=== PATIENT | female | born 1965 | race Caucasian/White ===

== ENCOUNTER 2017-11-09 11:16 | Inpatient (IN) ==
--- NOTE | 2017-11-08 22:16 | Discharge Summary ---
<Mila Vo E - Last Filed: 11/08/17 22:14> Date of Encounter: 11/08/17 - Discharge Diagnosis (1) Osteoarthritis of left shoulder Priority: Primary Status: Chronic Qualifiers: Osteoarthritis type: unspecified Qualified Code(s): M19.012 - Primary osteoarthritis, left shoulder (2) Anxiety Priority: Secondary Status: Chronic (3) Meralgia paraesthetica Priority: Secondary Status: Chronic (4) Obesity Priority: Secondary Status: Chronic Qualifiers: Obesity type: unspecified obesity type Obesity classification: unspecified obesity classification Serious obesity comorbidity presence: unspecified whether serious comorbidity present Qualified Code(s): E66.9 - Obesity, unspecified - Hospital Course Hospital course: Ms. Sterling Lozada is a 52 year old female - Time Spent with Patient Total time spent providing and/or coordinating discharge services: - Discharge Medications Home Medications: OxyCODONE Immed Rel [Roxicodone 5 MG] 5 mg PO Q6HR PRN 7 Days #28 tablet [Rx] Amitriptyline HCl 100 mg PO HS 11/09/17 [History] Aspirin [Lo-Dose Aspirin EC] 81 mg PO DAILY 11/09/17 [History] Atorvastatin Calcium [Lipitor] 20 mg PO HS 11/09/17 [History] Escitalopram [Lexapro] 20 mg PO DAILY 11/09/17 [History] Lisinopril [Zestril] 5 mg PO DAILY 11/09/17 [History] Quetiapine Fumarate [Seroquel] 50 mg PO HS 11/09/17 [History] Rabeprazole Sodium [Aciphex] 20 mg PO DAILY PRN 11/09/17 [History] clonazePAM [Klonopin] 0.5 mg PO BID PRN 11/09/17 [History] hydrOXYzine pamoate [Hydroxyzine Pamoate] 25 mg PO HS PRN 11/09/17 [History] hydroCHLOROthiazide [Hydrochlorothiazide] 25 mg PO DAILY 11/09/17 [History] lamoTRIgine [Lamictal] 50 mg PO DAILY 11/09/17 [History] Allergies/Adverse Reactions: 3 Allergy/AdvReac Type Severity Reaction Status Date / Time sumatriptan [From Imitrex] Allergy See Verified 11/09/17 12:47 Comments meperidine [From Demerol] AdvReac Agitated Verified 11/09/17 12:47 prednisone AdvReac See Verified 11/09/17 12:47 Comments Primary care physician: Yennifer Souza CNP - Patient Status Disposition: Home, Self-Care Condition: Good - Discharge Instructions Follow Up With: Yennifer Souza CNP [Primary Care Provider] - <SerafinRian - Last Filed: 11/10/17 06:43> Orders not resulted at time of discharge: Pending orders 11/09/17 00:00 XR shoulder complete LT [XR] Routine 11/09/17 01:00 Hemoglobin and Hematocrit [HEME] Routine Date of Encounter: 11/10/17 Time of Encounter: 06:43 - Discharge Diagnosis (1) Morbid obesity with BMI of 50.0-59.9, adult Priority: Secondary Status: Chronic (2) Osteoarthritis of left shoulder Priority: Primary Status: Chronic Qualifiers: Osteoarthritis type: unspecified Qualified Code(s): M19.012 - Primary osteoarthritis, left shoulder (3) Anxiety Priority: Secondary Status: Chronic (4) Meralgia paraesthetica Priority: Secondary Status: Chronic Qualifiers: Laterality: unspecified laterality Qualified Code(s): G57.10 - Meralgia paresthetica, unspecified lower limb (5) Status post total replacement of left shoulder Priority: Primary Status: Acute (6) Bipolar disorder Priority: Secondary Status: Chronic Qualifiers: Active/Remission status: remission status unspecified Qualified Code(s): F31.9 - Bipolar disorder, unspecified - Hospital Course Hospital course: Ms. Sterling Lozada is a 52 year old female Status post right total shoulder replacement. The patient had an uneventful postoperative course. They received antibiotics and physical therapy and were discharged in stable condition. There will follow -up in the office in 2 weeks. - Time Spent with Patient Total time spent providing and/or coordinating discharge services: Primary care physician: Yennifer Souza CNP - Patient Status Functional capacity at discharge: independent ambulation Overall status at discharge: patient is progressing back to baseline
--- NOTE | 2017-11-09 08:39 | Physician Discharge Referral ---
Home Health/Hosp Referral Info Transfer to: Home Health Attending Provider: Dr Betancourt - Diagnosis (1) Osteoarthritis of left shoulder Priority: Primary Status: Chronic (2) Anxiety Priority: Secondary Status: Chronic (3) Meralgia paraesthetica Priority: Secondary Status: Chronic (4) Obesity Priority: Secondary Status: Chronic (5) Status post total replacement of left shoulder Priority: Primary Status: Acute - Respiratory Orders Smoking Cessation: Smoking cessation has been advised. For more information, call the [facility] Tobacco Quit Line at 8-350-VPQQ-NOW. - Dressing/Wound Care Site: left shoulder Type of Dressing/Treatments w/Frequency: Opsite placed. Keep dressing intact until first follow up appointment. If > 50% saturated, notify office, remove dressing and place appropriate dressing back in place. Leave Zipline intact. Opsite dressing is water resistant, not water- proof. OK to shower, but do not get dressing wet. - Diet/Nutrition Diet/Nutrition Orders: Regular - Activity Activity Orders: Up ad jeanmarie, Ambulate, Chair, Walker - Services Needed Following services are medically necessary services: Nursing, Home Health Aide, Physical Therapy, Occupational Therapy Home Care Orders: PT/OT. NWB to affected upper extremity. Follow Shoulder Precautions x 6 weeks. Stay in brace during activity and at night. Remove brace during exercises. ICE and elevate extremity frequently throughout the day. - Transfer Medications Prescriptions: OxyCODONE Immed Rel [Roxicodone 5 MG] 5 mg PO Q6HR PRN 7 Days #28 tablet PRN Reason: Severe Pain Home Medications: OxyCODONE Immed Rel [Roxicodone 5 MG] 5 mg PO Q6HR PRN 7 Days #28 tablet [Rx] Certification: Further, I certify that my clinical findings support that this patient is homebound (i.e. absences from home require considerable and taxing effort and are for medical reasons or jain services or infrequently or short duration when for other reasons) because: Homebound Reason: Post-surgery restriction and or conditions limit ability to leave home Attestation: My signature below is to certify that this patient is under my care and that I, or nurse practitioner, or a physician assistant technician working with me, has a face-to- face encounter with this patient.
[2017-11-09] MEDS ORDERED: CeFAZolin Syr 3,000MG/30 ML 3,000 MG/30 ML SYRINGE IVPB ONE (11:38)
[2017-11-09] MEDS ORDERED: Ringers Solution, Lactated 1,000 ML IVC SCH ×2 (11:45→17:16)
[2017-11-09] MEDS ORDERED: Acetaminophen IV 1,000 MG/100 ML INFUS..BTL IVPB ONE (11:54)
--- NOTE | 2017-11-09 11:56 | Anesthesia Evaluation PreOp ---
Date of Encounter: 11/09/17 Time of Encounter: 11:54 - Past History Planned Operation: L total shoulder replacement Cardiac History: Denies any Significant Hx, Other (Impressions: Sinus tachycardia. LVEF 60-65%. Normal LV chamber size, wall thickness and function. Mild left ventricular diastolic dysfunction. Grossly, normal right ventricular structure and function. Unable to accurately estimate RVSP due to inadequate TR jet. No significant valvular dysfunction) Pulmonary History: Denies Any Significant HX PLAQUE MAKER History: Other (anxiety, bipolar depression) Other Medical History: Other (BMI 51) Anesthesia History: No Prior Anesthetic Complications, Past Anesthesia (R arm, L wrist tendon, ovarian cyst, AMOL, zachariah knee, breast reduction) Alcohol Use: none Drug use: none Medications and Allergies OxyCODONE Immed Rel [Roxicodone 5 MG] 5 mg PO Q6HR PRN 7 Days #28 tablet [Rx] 3 Allergy/AdvReac Type Severity Reaction Status Date / Time sumatriptan [From Imitrex] Allergy See Verified 11/09/17 11:37 Comments meperidine [From Demerol] AdvReac See Verified 11/09/17 11:36 Comments prednisone AdvReac See Verified 11/09/17 11:38 Comments - Meds/Allergy Pre-op Review Medications Reviewed: Yes Allergies Reviewed: Yes Beta Blockers on Current Med List: No Anesthesia Results - Labs Laboratory Tests 04/13/17 11/05/17 11/05/17 15:48 16:46 16:46 WBC 6.8 Hgb 13.4 Hct 40.1 Plt Count 252 Sodium 135 L Potassium Chloride 96 L Carbon Dioxide 26 BUN 10 Creatinine 0.90 Est Mean Plasma Glucose 120 Hemoglobin A1c 5.8 H 11/06/17 16:54 WBC Hgb Hct Plt Count Sodium Potassium 3.2 L Chloride Carbon Dioxide BUN Creatinine Est Mean Plasma Glucose Hemoglobin A1c - Imaging EKG: report reviewed (SR) Anesthesia Exam O2 Sat Height 1.63 m Height 1.63 m Weight 136.078 kg Weight 136.078 kg O2 Sat by Pulse Oximetry 98 Vital Signs Temp Pulse Resp BP Pulse Ox 98.2 F 102 18 138/69 98 11/09/17 11:35 11/09/17 11:35 11/09/17 11:35 11/09/17 11:35 11/09/17 11:35 Height: 64" Weight: 300lbs NPO (# of Hours): >8 - HEENT Pupil (Motor): Pupils equal, EOMI Mallampati: III Teeth: Normal Oral Opening: Greater than 3 - PLAQUE MAKER LOC: Oriented PLAQUE MAKER Motor: Normal RUE, Normal LUE, Normal RLE, Normal LLE, Normal Face PLAQUE MAKER Sensory: Normal: RUE, LUE, RLE, LLE, Face - Cardiac Rhythm: Regular - Pulmonary Breath Sounds: bilateral Clear Respiratory Effort: Symmetrical Anesthesia Assess/Plan ASA Score: 3 Modified Canvas Scale for Level of Consciousness: Cooperative, oriented, and tranquil Anesthetic Plan: General, Regional (L brachial plexus nn block) Monitoring Plan: Standard Monitors Recovery Plan: PACU
--- NOTE | 2017-11-09 12:16 | History & Physical Report ---
Date of Encounter: 11/09/17 Time of Encounter: 12:16 24 Hour HP Update - Instructions Instructions: If the History and Physical is less than 30 days old and was completed prior to A.M. admission and or procedure and has NOT been updated on calendar day of procedure please complete this update prior to performing procedure. - Update Patient reports changes in Medical Condition: No Changes in examination, assessment, or condition: No Changes in Medication: No Preop tests/diagnostics Reviewed: Yes Surgery Remains Indicated: Yes Consent for Planned Operative Procedure(s) Verified: Yes - Pre-Operative Checklist Preoperative Checklist Indicated: No Prophylactic Antibiotic Ordered: Yes Is VTE Prophylaxis Indicated?: Yes
[2017-11-09] MEDS ORDERED: *HR* FentaNYL (PF) 100 MCG/2 ML VIAL ONE (12:48)
[2017-11-09] MEDS ORDERED: *HR* Propofol 200 MG/20 ML VIAL IVP ONE (12:49)
[2017-11-09] MEDS ORDERED: *HR* Midazolam HCl 2 MG/2 ML VIAL ONE (12:49)
[2017-11-09] MEDS ORDERED: ROPIVACAINE HCL/PF 0.5% 30 ML VIAL ONE (13:24)
[2017-11-09] MEDS ORDERED: *HR* Succinylcholine 200 MG/10 ML VIAL IVP ONE (13:41)
--- NOTE | 2017-11-09 13:53 | Anesthesia Procedures ---
Date of Encounter: 11/09/17 Time of Encounter: 13:51 Procedures: Anesthesia - Nerve Block Procedure Date: 11/09/17 Time: 13:51 Surgical Procedure: left total shoulder replacement Checklist: Correct Patient Identifier, Correct procedure, History checked Correct side: Left Blood Thinner: No Monitor Applied: EKG, BP, Pulse Oximetry Supplemental Oxygen via Nasal Cannula (L/min): 2 Sedation: Versed (mg): 2 Sedation: Fentanyl (mcg): 100 Indication: Post Op Analgesia (request per dr simon for post op pain control) Pre-op Neuro Deficits: No Block Type: Supraclavicular Catheter placed: No Sterile Technique: Yes Ultrasound used: Yes Anatomy identified: Yes Visual spread of Local: Yes Neuro Stimulation: No Blood on Needle Aspiration: No Smooth Injection of Local: Yes Pain with Injection of Local: No Prep: Chlorhexadine Needle: 22 x 50 mm Stimuplex Local: Ropivacaine Volume (cc): 30 Number of Attempts: 1 Complications: None/effective block Vitals: Vital Signs/O2 Sat/Glucose, Most Current Temp Pulse Resp BP Pulse Ox 11/09/17 13:48 105 125/70 96 11/09/17 11:35 98.2 F 102 18 138/69 98 Comments: pt tolerated procedure well. no complications. vss.
[2017-11-09] MEDS ORDERED: *HR* OxyCODONE Immed Rel 5 MG TABLET PO PRN ×3 (14:42→17:16)
[2017-11-09] MEDS ORDERED: *HR* FentaNYL (PF) 100 MCG/2 ML VIAL IVP PRN (14:42)
[2017-11-09] MEDS ORDERED: Ondansetron 4 MG/2 ML VIAL IVP PRN ×2 (14:42→17:16)
--- NOTE | 2017-11-09 15:16 | Orthopedic Operative Note ---
Date of procedure: 11/09/17 Pre-op diagnosis: Left shoulder arthritis Post-op diagnosis: same Procedure: Procedure: Left Total Shoulder Replacement biceps tenodesis Estimated blood loss: 100 cc Hardware:Arthrex glenoid: Medium humeral stem: 9 humeral head 48 x 19 Exam Under anesthesia:restricted all planes Procedural Notes: Grade 4 arthritic changes humeral head glenoid socket. Operative procedure: The patient was brought to the operating room and placed on the operating room table. After general anesthesia was administered the operative shoulder was examined. Findings were noted. The patient was placed in the modified beachchair position. All pressure points were padded appropriately. And the head was stabilized in the neutral position. The operative extremity was prepped and draped in the sterile surgical fashion. The patient received IV antibiotics prior to skin incision. A standard deltopectoral approach was made to the operative shoulder. Incision was made to the skin and subcutaneous tissue,hemo stasis was obtained with Bovie cautery. Using careful blunt dissection the cephalic vein was identified and mobilized medially. The deltopectoral interval was developed and the clavipectoral fascia was incised. The subscap was released off the lesser tuberosity and tagged with #2 FiberWire suture. The humerus was dislocated osteophytes were present were removed and the humeral cut was made along the anatomic neck. Patient with grade 4 arthritic changes humeral head. Anterior and posterior Bankart retractors were placed to expose the glenoid. The glenoid guide was seated and the centering hole was made. It was reamed with the appropriate reamer. The finishing guide was seated superior and inferior drill holes were placed. Patient punch was seated trial was seated had good fit and fixation. The glenoid component was cemented in place held with digital pressure until cemented hardened. A good fit and fixation. The humerus was redislocated and prepared with the diaphyseal reamers, followed by a broaching process up to the appropriate size 9 in the patient's anatomic version. Trial components were removed and drill holes were placed in the bicipital groove x 2. The apex stem was filled with a #5 FiberWire suture through the holes in the stem the 2 lateral fin holes were passed through the drill holes in the lesser tuberosity and passed through the biceps tendon. The component was impacted in place the neck angle and version were locked in place with the inferior and superior screws the 48 x 19 trial head was seated and secured in the appropriate position shoulder had good motion and stability. Trial head was removed we will component was seated and secured subscap was repaired to the humerus as well as the humeral stem incorporating the biceps tendon for biceps tenodesis and a subscap repair. The PA close the shoulder. The deltopectoral interval was closed with a running #1 PDS suture, subcutaneous tissue was irrigated and closed with 0 PDS suture, the skin was closed with Dermabond. The patient was placed in a sterile dressing, abduction brace and extubated. The patient was then transferred to the recovery room in stable condition. Anesthesia: GETJesse Surgeon: Rian Betancourt Was there an assistant professor of psychology present: Yes Hardener Helper: Emilia Escoto Estimated blood loss (cc): 100 Condition: stable Disposition: PACU
[2017-11-09 16:27] LABS: Hematocrit 35.5 % (35.3-44.9)
[2017-11-09 16:28] LABS: Hemoglobin 11.5 g/dL (11.5-15.4)
--- NOTE | 2017-11-09 16:55 | Anesthesia Evaluation Post Op ---
Date of Encounter: 11/09/17 Time of Encounter: 16:53 - Vital Signs Vital Signs: Last Vital Signs Temp 98.7 F 11/09/17 16:39 Pulse 91 11/09/17 16:39 Resp 16 11/09/17 16:39 BP 142/82 11/09/17 16:39 Pulse Ox 91 11/09/17 16:39 - Lungs Lungs: Clear Ascult./Percussion - Airway Airway: Non-obstructed - Cardiovascular Regular Rate - Mental Status Mental Status: Alert & Oriented, Answers Appropriately - Pain Pain Scale: 1 - Nausea Vomiting Nausea Vomiting: Not Present - Hydration Hydration: Ice chips - Discharge PostOp Status: Transfer Patient to floor
[2017-11-09] MEDS ORDERED: hydrOXYzine pamoate 25 MG CAPSULE PO PRN (17:16)
[2017-11-09] MEDS ORDERED: MOM Conc 10 ML UD.LIQ PO PRN (17:16)
[2017-11-09] MEDS ORDERED: RABEPRAZOLE SODIUM 20 MG PO PRN (17:16)
[2017-11-09] MEDS ORDERED: clonazePAM 0.5 MG TABLET PO PRN (17:16)
[2017-11-09] MEDS ORDERED: Temazepam 15 MG CAPSULE PO PRN (17:16)
[2017-11-09] MEDS ORDERED: Sennosides 8.6 MG TABLET PO PRN (17:16)
[2017-11-09] MEDS ORDERED: Naloxone 0.4 MG/ML INJ IVP PRN (17:16)
[2017-11-09] MEDS ORDERED: *HR* Enoxaparin 30 MG/0.3 ML SYRINGE SQ SCH (18:00)
[2017-11-09] MEDS: *HR* Enoxaparin 30 MG/0.3 ML SYRINGE SQ SCH (18:11)
[2017-11-09] MEDS: CeFAZolin Syr 3,000MG/30 ML 3,000 MG/30 ML SYRINGE IVPB SCH (21:24)
[2017-11-10 04:46] VITALS: BP 113/68
[2017-11-10] MEDS: *HR* Enoxaparin 30 MG/0.3 ML SYRINGE SQ SCH (06:03)
[2017-11-10] MEDS: CeFAZolin Syr 3,000MG/30 ML 3,000 MG/30 ML SYRINGE IVPB SCH (06:03)
[2017-11-10 06:18] LABS: Hemoglobin 11.2 g/dL (11.5-15.4)
--- NOTE | 2017-11-10 06:44 | Orthopedics Progress Note ---
Date of Encounter: 11/10/17 Time of Encounter: 06:44 - Assessment and Plan (1) Morbid obesity with BMI of 50.0-59.9, adult Current Visit: Yes Status: Chronic (2) Osteoarthritis of left shoulder Current Visit: No Status: Chronic Qualifiers: Osteoarthritis type: unspecified Qualified Code(s): M19.012 - Primary osteoarthritis, left shoulder (3) Anxiety Current Visit: No Status: Chronic (4) Meralgia paraesthetica Current Visit: No Status: Chronic Qualifiers: Laterality: unspecified laterality Qualified Code(s): G57.10 - Meralgia paresthetica, unspecified lower limb (5) Status post total replacement of left shoulder Current Visit: No Status: Acute (6) Bipolar disorder Current Visit: Yes Status: Chronic Qualifiers: Active/Remission status: remission status unspecified Qualified Code(s): F31.9 - Bipolar disorder, unspecified Subjective Interval history: Patient was seen this morning doing well without complaints. Afebrile vital signs stable. Operative extremity: Neurovascularly intact Dressing clean dry and intact Calves nontender Assessment and plan: Continue with postoperative care Hematocrit 33 discharged today Objective Vital signs: Vital Signs Temp Pulse Resp BP Pulse Ox 11/10/17 04:45 97.9 F 85 18 113/68 96 11/10/17 00:58 98.4 F 91 18 118/75 98 11/09/17 19:20 98.8 F 102 16 133/85 93 11/09/17 18:52 98 16 112/65 97 11/09/17 18:07 98.2 F 94 16 99/59 95 11/09/17 17:20 98.4 F 90 16 145/85 95 11/09/17 16:59 87 16 142/89 91 11/09/17 16:49 88 16 138/83 93 11/09/17 16:39 98.7 F 91 16 142/82 91 11/09/17 16:29 94 16 135/82 90 11/09/17 16:19 90 16 131/80 90 11/09/17 16:09 97.0 F L 97 16 133/84 89 11/09/17 15:59 101 14 128/84 91 11/09/17 15:49 99 16 129/86 91 11/09/17 15:39 97.0 F L 94 12 122/71 93 11/09/17 13:48 105 125/70 96 11/09/17 11:35 98.2 F 102 18 138/69 98 Intake and Output 11/09/17 11/09/17 11/10/17 15:59 23:59 07:59 Intake Total 30 / 30 500 / 500 Output Total 100 / 100 Balance -100 / -100 30 / 30 500 / 500 Intake: IV Fluids 30 / 30 Ancef Syringe 3,000 MG/30 ML 3, 30 / 30 000 mg In 30 ml @ 200 mls/hr IVPB Q8H BARBRA Rx#:[id number] Oral 0 / 0 500 / 500 Output: Estimated Blood Loss 100 / 100 Other: # Voids 1 1 Weight 136.078 kg - Labs CBC & BMP: 11/10/17 05:53 Labs: Abnormal lab results Hgb 11.2 g/dL (11.5-15.4) L 11/10/17 05:53 Hct 33.0 % (35.3-44.9) L 11/10/17 05:53 - VTE Documentation of Mechanical Device: Venous foot pump, device Consult Discharge Plan - Plan Referrals: Yennifer Souza, PROCESS OWNER [Primary Care Provider] -
[2017-11-10] MEDS ORDERED: Aspirin Enteric Coated 81 MG Tablet PO SCH (09:00)
[2017-11-10] MEDS ORDERED: lamoTRIgine 25 MG TABLET PO SCH (09:00)
[2017-11-10] MEDS ORDERED: hydroCHLOROthiazide 25 MG TABLET PO SCH (09:00)
== END 2017-11-10 11:45 | disposition home or self-care (01) | DRG 483 ==
LOC: SAMDAY 11:16 → 3NENU 17:13
PROVIDERS: ADMIT Orthopaedic Surgery; ATTEND Orthopaedic Surgery

== ENCOUNTER 2020-10-09 11:38 | Observation (INO) ==
[2020-10-09 10:34] LABS: Basophils % 0.6 %; Eosinophils # 0.3 K/mcL (0.0-0.6); Eosinophils % 5.1 %; Hemoglobin 12.1 g/dL (11.5-15.4); Immature Granulocytes % 0.3 % (0-4); Lymphocytes # 1.9 K/mcL (0.6-4.6); Lymphocytes % 28.9 %; Mean Corpuscular Hemoglobin 30.2 pg (28.0-33.3); Mean Corpuscular Volume 97.3 fL (83.0-100.0); Mean Platelet Volume 9.4 fL (9.4-12.4); Monocytes # 0.6 K/mcL (0.0-1.3); Monocytes % 9.5 %; Neutrophils # 3.6 K/mcL (1.6-8.9); Platelet Count 242 K/mcL (140-400); Red Blood Count 4.01 M/mcL (3.82-4.97); Red Cell Distribution Width 13.4 % (11.5-14.5); Segmented Neutrophils % 55.6 %; White Blood Count 6.5 K/mcL (4.3-11.1)
[2020-10-09 10:53] LABS: Alanine Aminotransferase 20 Units/L (7-52); Albumin 4.4 g/dL (3.5-5.7); Albumin/Globulin Ratio 1.6 (1.1-2.2); Alkaline Phosphatase 84 Units/L (34-104); Aspartate Amino Transferase 14 Units/L (13-39); BUN/Creatinine Ratio 30 (6-26); Bilirubin,Total 0.3 mg/dL (0.3-1.0); Blood Urea Nitrogen 24 mg/dL (6-20); Calcium 10.2 mg/dL (8.6-10.3); Carbon Dioxide 31 mEq/L (23-29); Chloride 104 mEq/L (98-107); Globulin 2.8 g/dL (2.4-3.5); Glucose 119 mg/dL (70-105); Magnesium 1.7 mg/dL (1.6-2.6); Osmolality,Calculated 295 (280-300); Potassium 4.5 mEq/L (3.5-5.1); Sodium 140 mEq/L (136-145); Total Protein 7.2 g/dL (6.4-8.9); eGFR For African Americans > 60 (> 60); eGFR For Non-African Americans > 60 (> 60)
[2020-10-09] MEDS: Nicotine 21 MG PATCH.TD24 TD SCH (11:16)
[2020-10-09] MEDS: Cholecalciferol (D-3) 1,000 UNIT (25MCG) TABLET PO SCH (18:01)
[2020-10-09] MEDS: Folic Acid 1 MG TABLET PO SCH (18:01)
[2020-10-09] MEDS: Aspirin Enteric Coated 81 MG Tablet PO SCH (18:01)
[2020-10-09] MEDS: *HR* Metformin 500 MG TABLET PO SCH (18:02)
[2020-10-09] MEDS: lisinopriL 10 MG TABLET PO SCH (18:02)
[2020-10-10] MEDS: ARIPiprazole 5 MG TABLET PO SCH (07:37)
[2020-10-10] MEDS: DilTIAZem CD (24hr) 180 MG CAP.ER.24H PO SCH (07:37)
[2020-10-10] MEDS: Furosemide 40 MG TABLET PO SCH (07:37)
[2020-10-10] MEDS: *HR* Metformin 500 MG TABLET PO SCH ×2 (07:37→17:24)
[2020-10-10] MEDS: *HR* Rivaroxaban 10 MG TABLET PO SCH (07:37)
[2020-10-10] MEDS: Nicotine 21 MG PATCH.TD24 TD SCH (07:38)
[2020-10-10] MEDS ORDERED: *HR* HYDROcodone/Acet 5/325 mg TABLET PO PRN (08:19)
[2020-10-10] MEDS ORDERED: *HR* Dextrose 50 % in Water (Vial) 50 ML VIAL IVP PRN (10:15)
[2020-10-10] MEDS ORDERED: Dextrose Gel 15 GM/37.5 ML TUBE PO PRN ×2 (10:15)
[2020-10-10] MEDS ORDERED: D5% in Water 1,000 ML IVC PRN (10:15)
[2020-10-10] MEDS: Cholecalciferol (D-3) 1,000 UNIT (25MCG) TABLET PO SCH (17:23)
[2020-10-10] MEDS: Aspirin Enteric Coated 81 MG Tablet PO SCH (17:24)
[2020-10-10] MEDS: Folic Acid 1 MG TABLET PO SCH (17:24)
[2020-10-10] MEDS: lisinopriL 10 MG TABLET PO SCH (17:24)
[2020-10-10] MEDS ORDERED: Acetaminophen 325 MG TABLET PO PRN (19:38)
[2020-10-11] MEDS: DilTIAZem CD (24hr) 180 MG CAP.ER.24H PO SCH (09:42)
[2020-10-11] MEDS: *HR* Rivaroxaban 10 MG TABLET PO SCH (09:42)
[2020-10-11] MEDS: ARIPiprazole 5 MG TABLET PO SCH (09:42)
[2020-10-11] MEDS: Furosemide 40 MG TABLET PO SCH (09:42)
[2020-10-11] MEDS: *HR* Metformin 500 MG TABLET PO SCH (09:42)
[2020-10-11] MEDS: Nicotine 21 MG PATCH.TD24 TD SCH (09:43)
[2020-10-11 11:21] VITALS: BP 113/65
== END 2020-10-11 14:24 | disposition home or self-care (01) ==
LOC: 2ANU
PROVIDERS: ADMIT Internal Medicine Clinical Cardiac Electrophysiology; ATTEND Internal Medicine Clinical Cardiac Electrophysiology

== ENCOUNTER 2021-08-21 09:24 | Inpatient (IN) ==
[2021-08-21] MEDS ORDERED: 0.9 % Sodium Chloride 500 ML IVC ONE (09:54)
[2021-08-21] MEDS ORDERED: 0.9 % Sodium Chloride 1,000 ML IVC ONE (10:13)
[2021-08-21 10:34] LABS: Basophils % 0.4 %; Eosinophils % 0.4 %; Hematocrit 23.6 % (35.3-44.9); Hemoglobin 7.4 g/dL (11.5-15.4); Immature Granulocytes % 0.3 % (0-4); Lymphocytes # 1.5 K/mcL (0.6-4.6); Lymphocytes % 19.4 %; Mean Corpuscular HGB Conc 31.4 g/dL (31.6-35.5); Mean Corpuscular Hemoglobin 30.6 pg (28.0-33.3); Mean Corpuscular Volume 97.5 fL (83.0-100.0); Mean Platelet Volume 10.1 fL (9.4-12.4); Monocytes # 0.4 K/mcL (0.0-1.3); Monocytes % 4.8 %; Neutrophils # 5.8 K/mcL (1.6-8.9); Platelet Count 246 K/mcL (140-400); Red Blood Count 2.42 M/mcL (3.82-4.97); Red Cell Distribution Width 13.9 % (11.5-14.5); Segmented Neutrophils % 74.7 %; White Blood Count 7.7 K/mcL (4.3-11.1)
[2021-08-21] MEDS ORDERED: Pantoprazole 40 MG VIAL IVP ONE (10:54)
[2021-08-21 10:56] LABS: Alanine Aminotransferase 8 Units/L (7-52); Albumin 3.8 g/dL (3.5-5.7); Albumin/Globulin Ratio 1.5 (1.1-2.2); Alkaline Phosphatase 75 Units/L (34-104); Aspartate Amino Transferase 10 Units/L (13-39); BUN/Creatinine Ratio 59 (6-26); Bilirubin,Total 0.3 mg/dL (0.3-1.0); Blood Urea Nitrogen 41 mg/dL (6-20); Calcium 9.1 mg/dL (8.6-10.3); Carbon Dioxide 26 mEq/L (23-29); Chloride 104 mEq/L (98-107); Globulin 2.6 g/dL (2.4-3.5); Glucose 125 mg/dL (70-105); Osmolality,Calculated 296 (280-300); Potassium 4.3 mEq/L (3.5-5.1); Sodium 137 mEq/L (136-145); Total Protein 6.4 g/dL (6.4-8.9); Troponin I < 0.03 ng/mL (< 0.04); eGFR For African Americans > 60 (> 60); eGFR For Non-African Americans > 60 (> 60)
[2021-08-21 11:10] LABS: Thyroid Stimulating Hormone 0.859 mcIU/mL (0.340-5.600)
[2021-08-21 11:15] LABS: INR 1.3; Prothrombin Time 14.1 Seconds (9.4-12.1)
[2021-08-21 11:18] LABS: Activated Partial Thrombo Time 28.5 Seconds (26.0-36.0)
[2021-08-21 11:25] LABS: Influenza A PCR Negative (Negative); Influenza B PCR Negative (Negative); Resp. Syncytial Virus PCR Negative (Negative)
[2021-08-21 11:26] LABS: SARS-CoV-2 by PCR (In House) Negative (Negative)
[2021-08-21] MEDS ORDERED: Acetaminophen 325 MG TABLET PO PRN (11:54)
[2021-08-21] MEDS ORDERED: Melatonin 3 MG TABLET PO PRN (11:54)
[2021-08-21] MEDS ORDERED: Naloxone 0.4 MG/ML INJ IVP PRN (11:54)
[2021-08-21] MEDS ORDERED: D5% in Water 1,000 ML IVC PRN (11:56)
[2021-08-21] MEDS ORDERED: *HR* Dextrose 50 % in Water (Syg) 50 ML SYRINGE IVP PRN (11:56)
[2021-08-21] MEDS ORDERED: Dextrose Gel 15 GM/37.5 ML TUBE PO PRN ×2 (11:56)
[2021-08-21] MEDS: Insulin LISPRO 300 UNITS/3 ML VIAL SUBQ SCH ×2 (15:10→18:50)
[2021-08-21 18:08] LABS: Hematocrit 23.2 % (35.3-44.9); Hemoglobin 7.3 g/dL (11.5-15.4)
[2021-08-21] MEDS ORDERED: 0.9 % Sodium Chloride 250 ML IVC SCH (18:30)
[2021-08-21] MEDS: Pantoprazole 40 MG VIAL IVP SCH (19:21)
[2021-08-21] MEDS ORDERED: tiZANidine 4 MG TABLET PO ONE (19:43)
[2021-08-21] MEDS ORDERED: Prochlorperazine 10 MG/2 ML VIAL IVP PRN (20:19)
[2021-08-22 00:36] LABS: Bilirubin,Urine Negative (Negative); Blood,Urine Negative (Negative); Clarity,Urine Clear (Clear); Color,Urine Light-Yellow (Yellow); Glucose,Urine (UA) Normal (Normal); Ketones,Urine Negative (Negative); Leukocyte Esterase,Urine Small (Negative); Mucus,Urine Few per lpf (None-Few); Nitrite,Urine Negative (Negative); PH,Urine 5.5 pH Units (5.0-8.0); Protein,Urine Negative (Neg-Trace); RBC,Urine 0-3 per hpf (0-3); Squamous Epithelial Cell,Urine Few per hpf (None-Few); Urobilinogen,Urine Normal (Normal)
[2021-08-22] MEDS: Insulin LISPRO 300 UNITS/3 ML VIAL SUBQ SCH ×5 (01:21→23:03)
[2021-08-22] MEDS ORDERED: *HR* Promethazine 25 MG/ML VIAL IM ONE (03:11)
[2021-08-22 03:24] LABS: Basophils % 0.5 %; Eosinophils # 0.2 K/mcL (0.0-0.6); Hematocrit 24.8 % (35.3-44.9); Hemoglobin 8.1 g/dL (11.5-15.4); Immature Granulocytes % 0.3 % (0-4); Lymphocytes # 2.6 K/mcL (0.6-4.6); Lymphocytes % 41.4 %; Mean Corpuscular HGB Conc 32.7 g/dL (31.6-35.5); Mean Corpuscular Hemoglobin 31.3 pg (28.0-33.3); Mean Corpuscular Volume 95.8 fL (83.0-100.0); Monocytes # 0.6 K/mcL (0.0-1.3); Monocytes % 9.1 %; Neutrophils # 2.9 K/mcL (1.6-8.9); Platelet Count 200 K/mcL (140-400); Red Blood Count 2.59 M/mcL (3.82-4.97); Red Cell Distribution Width 14.5 % (11.5-14.5); Segmented Neutrophils % 45.7 %; White Blood Count 6.4 K/mcL (4.3-11.1)
[2021-08-22 03:33] LABS: INR 1.2; Prothrombin Time 13.6 Seconds (9.4-12.1)
[2021-08-22 03:48] LABS: BUN/Creatinine Ratio 42 (6-26); Blood Urea Nitrogen 28 mg/dL (6-20); Calcium 8.8 mg/dL (8.6-10.3); Carbon Dioxide 25 mEq/L (23-29); Chloride 106 mEq/L (98-107); Glucose 107 mg/dL (70-105); Osmolality,Calculated 292 (280-300); Potassium 3.9 mEq/L (3.5-5.1); Sodium 138 mEq/L (136-145); eGFR For African Americans > 60 (> 60); eGFR For Non-African Americans > 60 (> 60)
[2021-08-22 03:49] LABS: Iron 104 mcg/dL (50-170)
[2021-08-22 03:57] LABS: Ferritin 10 ng/mL (10-120)
[2021-08-22 04:08] LABS: % Iron Saturation 27 % (15-50); Transferrin 280 mg/dL (203-362)
[2021-08-22] MEDS: Pantoprazole 40 MG VIAL IVP SCH ×2 (06:10→18:16)
[2021-08-22] MEDS ORDERED: Lidocaine -MPF 2% 5 ML VIAL ONE (13:08)
[2021-08-22] MEDS ORDERED: Ondansetron 4 MG/2 ML VIAL ONE (13:10)
[2021-08-22] MEDS ORDERED: *HR* Metoprolol 5 MG/5 ML VIAL IVP ONE (13:31)
[2021-08-22] MEDS ORDERED: *HR* Succinylcholine 200 MG/10 ML VIAL IVP ONE (13:55)
[2021-08-22 16:58] LABS: Hematocrit 25.1 % (35.3-44.9); Hemoglobin 8.1 g/dL (11.5-15.4)
[2021-08-23 02:09] LABS: Basophils % 0.5 %; Eosinophils # 0.3 K/mcL (0.0-0.6); Eosinophils % 4.9 %; Hematocrit 23.3 % (35.3-44.9); Hemoglobin 7.4 g/dL (11.5-15.4); Immature Granulocytes % 0.2 % (0-4); Lymphocytes # 2.5 K/mcL (0.6-4.6); Lymphocytes % 41.3 %; Mean Corpuscular HGB Conc 31.8 g/dL (31.6-35.5); Mean Corpuscular Hemoglobin 30.3 pg (28.0-33.3); Mean Corpuscular Volume 95.5 fL (83.0-100.0); Mean Platelet Volume 9.7 fL (9.4-12.4); Monocytes # 0.5 K/mcL (0.0-1.3); Monocytes % 8.1 %; Neutrophils # 2.7 K/mcL (1.6-8.9); Platelet Count 190 K/mcL (140-400); Red Blood Count 2.44 M/mcL (3.82-4.97); Red Cell Distribution Width 14.5 % (11.5-14.5)
[2021-08-23] MEDS: Insulin LISPRO 300 UNITS/3 ML VIAL SUBQ SCH ×3 (05:16→16:41)
[2021-08-23] MEDS: Pantoprazole 40 MG VIAL IVP SCH ×2 (05:20→17:16)
[2021-08-23] MEDS ORDERED: 0.9 % Sodium Chloride 250 ML ONE (08:59)
[2021-08-23] MEDS ORDERED: *HR* Promethazine 25 MG/ML VIAL IM ONE (14:53)
[2021-08-23 18:37] LABS: Hematocrit 29.8 % (35.3-44.9)
[2021-08-23 18:39] LABS: Hemoglobin 9.6 g/dL (11.5-15.4)
[2021-08-23] MEDS ORDERED: *HR* Metoprolol 5 MG/5 ML VIAL IVP ONE (23:12)
[2021-08-24 02:12] LABS: Basophils % 0.4 %; Eosinophils # 0.2 K/mcL (0.0-0.6); Eosinophils % 3.3 %; Hematocrit 28.5 % (35.3-44.9); Hemoglobin 9.2 g/dL (11.5-15.4); Immature Granulocytes % 0.3 % (0-4); Lymphocytes # 2.6 K/mcL (0.6-4.6); Lymphocytes % 34.8 %; Mean Corpuscular HGB Conc 32.3 g/dL (31.6-35.5); Mean Corpuscular Hemoglobin 30.8 pg (28.0-33.3); Mean Corpuscular Volume 95.3 fL (83.0-100.0); Mean Platelet Volume 9.8 fL (9.4-12.4); Monocytes # 0.7 K/mcL (0.0-1.3); Monocytes % 10.1 %; Neutrophils # 3.7 K/mcL (1.6-8.9); Platelet Count 208 K/mcL (140-400); Red Blood Count 2.99 M/mcL (3.82-4.97); Red Cell Distribution Width 14.9 % (11.5-14.5); Segmented Neutrophils % 51.1 %; White Blood Count 7.3 K/mcL (4.3-11.1)
[2021-08-24 02:32] LABS: Alanine Aminotransferase 7 Units/L (7-52); Albumin 3.5 g/dL (3.5-5.7); Albumin/Globulin Ratio 1.5 (1.1-2.2); Alkaline Phosphatase 79 Units/L (34-104); Aspartate Amino Transferase 12 Units/L (13-39); BUN/Creatinine Ratio 22 (6-26); Bilirubin,Total 0.4 mg/dL (0.3-1.0); Blood Urea Nitrogen 19 mg/dL (6-20); Carbon Dioxide 26 mEq/L (23-29); Chloride 107 mEq/L (98-107); Globulin 2.3 g/dL (2.4-3.5); Glucose 101 mg/dL (70-105); Osmolality,Calculated 294 (280-300); Potassium 3.7 mEq/L (3.5-5.1); Sodium 141 mEq/L (136-145); Total Protein 5.8 g/dL (6.4-8.9); eGFR For African Americans > 60 (> 60); eGFR For Non-African Americans > 60 (> 60)
[2021-08-24] MEDS: Insulin LISPRO 300 UNITS/3 ML VIAL SUBQ SCH ×4 (05:49→16:59)
[2021-08-24] MEDS: Pantoprazole 40 MG VIAL IVP SCH ×2 (05:57→16:53)
[2021-08-24] MEDS: DilTIAZem CD (24hr) 180 MG CAP.ER.24H PO SCH (09:01)
[2021-08-24] MEDS: *HR* Rivaroxaban 10 MG TABLET PO SCH (10:53)
[2021-08-25 03:18] VITALS: O2SAT 96
[2021-08-25] MEDS: Insulin LISPRO 300 UNITS/3 ML VIAL SUBQ SCH (05:57)
[2021-08-25] MEDS: Pantoprazole 40 MG VIAL IVP SCH (06:17)
[2021-08-25 07:36] VITALS: BP 107/62; PULSE 71; TEMP 98
[2021-08-25] MEDS: DilTIAZem CD (24hr) 180 MG CAP.ER.24H PO SCH (08:27)
[2021-08-25] MEDS: *HR* Rivaroxaban 10 MG TABLET PO SCH (08:27)
[2021-08-25 08:49] LABS: Basophils % 0.3 %; Eosinophils # 0.2 K/mcL (0.0-0.6); Hematocrit 27.3 % (35.3-44.9); Lymphocytes # 2.2 K/mcL (0.6-4.6); Lymphocytes % 34.2 %; Mean Corpuscular Hemoglobin 31.4 pg (28.0-33.3); Mean Corpuscular Volume 95.1 fL (83.0-100.0); Mean Platelet Volume 9.7 fL (9.4-12.4); Monocytes # 0.7 K/mcL (0.0-1.3); Monocytes % 10.4 %; Neutrophils # 3.3 K/mcL (1.6-8.9); Platelet Count 241 K/mcL (140-400); Red Blood Count 2.87 M/mcL (3.82-4.97); Red Cell Distribution Width 14.8 % (11.5-14.5); Segmented Neutrophils % 52.1 %; White Blood Count 6.4 K/mcL (4.3-11.1)
== END 2021-08-25 10:02 | disposition home or self-care (01) | DRG 378 ==
LOC: 3BNU 09:24 → EMEROOARM 09:24 → 3BNU 14:33
PROVIDERS: ADMIT Internal Medicine; ATTEND Internal Medicine